=== PATIENT | female | born 1950 | race Caucasian/White ===

== ENCOUNTER 2017-10-26 13:07 | Inpatient (IN) | payer OTHER ==
[~2017-10-26] VITALS: Ht 162.6 cm; Wt 59.0 kg
[~2017-10-26 13:07] MED LIST: CLONAZEPAM2 M1; SYNTHROID50 MCG
== END 2017-11-10 14:45 | disposition home or self-care (01) | DRG 909 ==
LOC: ER 13:07 → SEC-K 10-28 09:01 → SURG 10-28 09:01
PROVIDERS: Colon & Rectal Surgery
PROC: 0DQ80ZZ Repair Small Intestine, Open Approach (ICD-10-PCS; 2017-11-06)
PROC: 0DN80ZZ Release Small Intestine, Open Approach (ICD-10-PCS; 2017-11-06)
PROC: 0WPF0JZ Removal of Synthetic Substitute from Abdominal Wall, Open Approach (ICD-10-PCS; principal; 2017-11-06 14:00)
DX: T85.79XA Infection and inflammatory reaction due to other internal prosthetic devices, implants and grafts, initial encounter (principal); Y83.2 Surgical operation with anastomosis, bypass or graft as the cause of abnormal reaction of the patient, or of later complication, without mention of misadventure at the time of the procedure; Y92.098 Other place in other non-institutional residence as the place of occurrence of the external cause; K66.0 Peritoneal adhesions (postprocedural) (postinfection); F41.8 Other specified anxiety disorders; E03.8 Other specified hypothyroidism; D64.89 Other specified anemias; T78.49XA Other allergy, initial encounter